=== PATIENT | female | born 1950 | race African-American/Black ===

== ENCOUNTER 2016-11-16 06:55 | Day surgery (SDC) | payer BC ==
[~2016-11-16] VITALS: Ht 172.7 cm; Wt 88.9 kg
[~2016-11-16 06:55] MED LIST: AFRIN 12 HOUR0.05 %; ALTACE10 M1 PO; AMOXICILLIN500 MG OR; AVELOX400 MG OR; CIPROFLOXACN500 MG PO; FUROSEMIDE20 MG PO; HYDROCHLOROT25 MG PO; LORTAB 5 OR; NORCO1 TA1 PO; NORVASC10 M1 PO; POT CHLORIDE10 ME1 PO; PREVACID15 M1 OR; ROBITUSSIN AC10 ML OR; SIMVASTATIN40 MG PO; ZOCOR PO; [UNRECOGNIZED DRUG - REMARK]
[2016-11-16 10:44] VITALS: BP 147/80
== END 2016-11-16 11:05 | disposition home or self-care (01) | DRG 951 ==
LOC: ENDO 06:55
PROVIDERS: ATTEND Surgery
PROC: 0DJD8ZZ Inspection of Lower Intestinal Tract, Via Natural or Artificial Opening Endoscopic (ICD-10-PCS; principal; 2016-11-16)
DX: Z12.11 Encounter for screening for malignant neoplasm of colon (principal); I10 Essential (primary) hypertension; K57.30 Diverticulosis of large intestine without perforation or abscess without bleeding; E78.5 Hyperlipidemia, unspecified; Z80.0 Family history of malignant neoplasm of digestive organs

== ENCOUNTER 2019-04-13 09:20 | Emergency (ER) | payer MEDICARE, OTHER ==
[~2019-04-13] VITALS: Ht 172.7 cm; Wt 97.8 kg
[2019-04-13] MEDS ORDERED: ALTACE10 MG PO (11:56)
[2019-04-13] MEDS ORDERED: NAPROXEN500 MG PO (12:02)
[2019-04-13] MEDS ORDERED: FLEXERIL PO (12:02)
[2019-04-13 12:13] VITALS: BP 148/82
== END 2019-04-13 12:13 | disposition home or self-care (01) ==
LOC: ED 09:20
DX: S33.5XXA Sprain of ligaments of lumbar spine, initial encounter (principal); S73.101A Unspecified sprain of right hip, initial encounter; I10 Essential (primary) hypertension; W17.89XA Other fall from one level to another, initial encounter; Y93.89 Activity, other specified

== ENCOUNTER 2019-12-26 08:28 | Day surgery (SDC) | payer MEDICARE ==
[~2019-12-26] VITALS: Ht 172.7 cm; Wt 89.4 kg
[~2019-12-26 08:28] MED LIST changes: +ALTACE10 MG PO; +BUSPAR10 MG PO; +COQ-10100 M1 PO; +FLEXERIL PO; +NAPROXEN500 MG PO; +NORVASC5 M1 PO; +OMEPRAZOLE DR40 MG PO; +PEPCID20 MG PO; +SIMVASTATIN10 MG PO; +ZOLPIDEM5 M1 PO
[2019-12-26 10:59] VITALS: BP 182/79
== END 2019-12-26 10:55 | disposition home or self-care (01) ==
LOC: ENDO 08:28 → ORM 09:45 → ENDO 10:20
PROVIDERS: ATTEND Surgery
PROC: 0DB78ZX Excision of Stomach, Pylorus, Via Natural or Artificial Opening Endoscopic, Diagnostic (ICD-10-PCS; principal; 2019-12-26)
DX: K29.50 Unspecified chronic gastritis without bleeding (principal); B96.81 Helicobacter pylori [H. pylori] as the cause of diseases classified elsewhere; I10 Essential (primary) hypertension; Z86.19 Personal history of other infectious and parasitic diseases; Z11.59 Encounter for screening for other viral diseases

== ENCOUNTER 2021-12-07 08:10 | Day surgery (SDC) | payer MEDICARE ==
[~2021-12-07] VITALS: Ht 172.7 cm; Wt 88.9 kg
[~2021-12-07 08:10] MED LIST changes: +BUSPIRONE10 MG PO; +LOSARTAN POTASS25 MG PO
[2021-12-07 10:48] VITALS: BP 139/84
[2021-12-10] MEDS ORDERED: OMEPRAZOLE20 MG PO (11:29)
[2021-12-10] MEDS ORDERED: LEVOFLOXACIN500MG PO (11:30)
[2021-12-10] MEDS ORDERED: AMOXICILLIN500 M2 PO (11:31)
== END 2021-12-07 10:58 | disposition home or self-care (01) ==
LOC: ENDO 08:10 → ORM 08:45 → ENDO 08:45
PROVIDERS: ATTEND Surgery
PROC: 0DBN8ZX Excision of Sigmoid Colon, Via Natural or Artificial Opening Endoscopic, Diagnostic (ICD-10-PCS; principal; 2021-12-07)
PROC: 0DB78ZX Excision of Stomach, Pylorus, Via Natural or Artificial Opening Endoscopic, Diagnostic (ICD-10-PCS; 2021-12-07)
DX: Z12.11 Encounter for screening for malignant neoplasm of colon (principal); K63.5 Polyp of colon; K57.30 Diverticulosis of large intestine without perforation or abscess without bleeding; K29.70 Gastritis, unspecified, without bleeding; B96.81 Helicobacter pylori [H. pylori] as the cause of diseases classified elsewhere; K44.9 Diaphragmatic hernia without obstruction or gangrene; I10 Essential (primary) hypertension; Z80.0 Family history of malignant neoplasm of digestive organs